=== PATIENT | male | born 1930 | race Caucasian/White ===

== ENCOUNTER 2017-09-05 23:33 | Emergency (ER) | payer MEDICARE, OTHER ==
[~2017-09-05] VITALS: Ht 175.3 cm; Wt 87.5 kg
--- OUTSIDE RECORDS SUMMARY | 2017-09-05 23:38 | XMS REPORT | Continuity of Care Document ---
Author Author [facility] Organization [facility] Address Unknown Phone Unavailable Allergies Active Description Code Type Severity Reaction Onset Reported/Identified Relationship to Patient Clinical Status Yes No Known Drug Allergies [id number] Drug Allergy Unknown N/A 08/14/2015 Medications There is no data. Problems Date Dx Coded Attending Type Code Diagnosis Diagnosed By 08/07/2015 LISBETH MORELOS MD Ot M54.5 08/07/2015 LISBETH MORELOS MD Ot M47.816 08/14/2015 LISBETH MORELOS MD Ot M54.5 08/14/2015 LISBETH MORELOS MD Ot M54.5 08/14/2015 LISBETH MORELOS MD Ot M47.816 08/17/2015 LISBETH MORELOS MD Ot M54.5 Procedures There is no data. Results There is no data. Encounters ACCT No. Visit Date/Time Discharge Status Pt. Type Provider Facility Loc./Unit Complaint [id number] 08/14/2015 12:58:00 08/14/2015 14:49:00 DIS Outpatient LISBETH MORELOS MD [facility] CARD [id number] 08/07/2015 13:39:00 08/07/2015 14:20:00 DIS Outpatient LISBETH MORELOS MD [facility] CARD [id number] 07/27/2015 11:08:00 07/27/2015 23:59:59 CLS Outpatient LISBETH MORELOS MD [facility] RAD
[2017-09-05] MEDS ORDERED: LISI-552 (23:48)
[2017-09-05] MEDS ORDERED: METO-370 (23:48)
[2017-09-06 00:26] LABS: BILIRUBIN,URINE NEGATIVE (NEGATIVE); KETONES,URINE NEGATIVE (NEGATIVE); LEUKOCYTE ESTERASE ,URINE 1+ (NEGATIVE); NITRITE,URINE NEGATIVE (NEGATIVE); PH,URINE 5 (5-9); PROTEIN,URINE 1+ (NEGATIVE); UROBILINOGEN,URINE NORMAL (NORMAL)
[2017-09-06 00:36] LABS: BASOPHILS % (AUTO) 0 % (0-10); EOSINOPHILS % (AUTO) 0 % (0-10); LYMPHOCYTES # (AUTO) 0.2 X 10^3 (1.0-4.0); LYMPHOCYTES % (AUTO) 2 % (12-44); MEAN CORPUSCULAR HEMOGLOBIN 30 PG (25-34); MEAN CORPUSCULAR HGB CONC 34 G/DL (32-36); MEAN CORPUSCULAR VOLUME 88 FL (80-99); MEAN PLATELET VOLUME 8.9 FL (7.4-10.4); MONOCYTES # (AUTO) 0.3 X 10^3 (0.0-1.0); MONOCYTES % (AUTO) 3 % (0-12); NEUTROPHILS # (AUTO) 10.5 X 10^3 (1.8-7.8); NEUTROPHILS % (AUTO) 94 % (42-75); PLATELET COUNT 241 10^3/uL (130-400); RED BLOOD COUNT 4.53 10^6/uL (4.35-5.85); RED CELL DISTRIBUTION WIDTH 13.4 % (10.0-14.5); WHITE BLOOD COUNT 11.2 10^3/uL (4.3-11.0)
[2017-09-06 00:42] LABS: HYALINE CASTS, URINE RARE /LPF; SQUAMOUS EPITHELIAL CELL,UR RARE /HPF; WBC,URINE 0-2 /HPF
[2017-09-06 00:55] LABS: BAND NEUTROPHILS 7 %; BASOPHILS % (MANUAL) 0 %; EOSINOPHILS % (MANUAL) 0 %; LYMPHOCYTES % (MANUAL) 1 %; NEUTROPHILS % (MANUAL) 90 %; REACTIVE LYMPHOCYTES 1 %
[2017-09-06 01:06] LABS: ALANINE AMINOTRANSFERASE 19 U/L (0-55); ALBUMIN 3.4 GM/DL (3.2-4.5); ANION GAP 13 MMOL/L (5-14); ASPARTATE AMINO TRANSFERASE 27 U/L (5-34); BILIRUBIN,TOTAL 1.3 MG/DL (0.1-1.0); BLOOD UREA NITROGEN 11 MG/DL (7-18); BUN/CREATININE RATIO 11; CALCIUM 9.1 MG/DL (8.5-10.1); CARBON DIOXIDE 19 MMOL/L (21-32); CHLORIDE 106 MMOL/L (98-107); CREATININE SERUM 0.98 MG/DL (0.60-1.30); GFR ESTIMATED > 60; GLUCOSE 95 MG/DL (70-105); POTASSIUM 3.8 MMOL/L (3.6-5.0); SODIUM 138 MMOL/L (135-145); TOTAL PROTEIN 7.1 GM/DL (6.4-8.2); hs C REACTIVE PROTEIN 0.44 MG/DL (0.00-0.50)
[2017-09-06] MEDS ORDERED: cefTRIAXone INJECTION 1,000 MG in NS (IVPB) 50 ML IV ONE (02:00)
[2017-09-06] MEDS ORDERED: LEVO750T9 PO (02:17)
--- NOTE | 2017-09-06 02:17 | ED General ---
General Chief Complaint: Fever-Adult/Adol Stated Complaint: FEVER 102.5 Nursing Triage Note: FEVER Nursing Sepsis Screen: No Definite Risk Source of Information: Patient, Family, Old Records Exam Limitations: No Limitations History of Present Illness Time Seen by Provider: 02:20 Initial Comments Patient presents to emergency room with onset of fever and chills tonight. He has mild headache and urinary frequency but has no other complaints. He was recently treated at [facility] for sepsis of unknown source. He had a blood culture returned positive for staph aureus with broad sensitivity. He was dismissed the first week of August. He finished a seven-day course of Cipro and Flagyl as an outpatient under the direction of Dr. Bryant. No definite source of infection was ever identified for his bacteremia that prostatitis or diverticulitis was considered as a possibility. Daughter noted a temperature 102.5 after he started chilling. He received 2 Tylenol at home. He has recent diagnosis of A. fib and is on Eliquis. 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" Home Medications Levofloxacin 750 Mg Tablet, 750 MG PO DAILY, #5 Prescribed by: FISH SWIFT on 09/06/17 0217 Lisinopril 20 Mg Tablet, (Reported) Metoprolol Succinate 50 Mg Tab.er.24h, (Reported) Constitutional: see HPI EENTM: no symptoms reported Respiratory: no symptoms reported Cardiovascular: no symptoms reported Gastrointestinal: no symptoms reported Genitourinary: see HPI Musculoskeletal: no symptoms reported Skin: no symptoms reported Psychiatric/Neurological: See HPI Hematologic/Lymphatic: No Symptoms Reported Past Eskgwev-Clokmb-Nekgqa Hx Patient Social History Alcohol Use: Denies Use Recreational Drug Use: No Smoking Status: Former Smoker 2nd Hand Smoke Exposure: No Recent Foreign Travel: No Contact w/Someone Who Travel: No Recent Infectious Disease Expo: No Recent Hopitalizations: No Immunizations Up To Date Tetanus Booster (TDap): Unknown Seasonal Allergies Seasonal Allergies: No Surgeries History of Surgeries: Yes (LYMPHNODE) Surgeries: Eye Surgery, Pacemaker Respiratory History of Respiratory Disorde: No Cardiovascular History of Cardiac Disorders: Yes Cardiac Disorders: Atrial Fibrillation, Hypertension Neurological History of Neurological Disord: No Genitourinary History of Genitourinary Disor: Yes Genitourinary Disorders: Prostate Problems Gastrointestinal History of Gastrointestinal Di: Yes Gastrointestinal Disorders: Diverticulosis Musculoskeletal History of Musculoskeletal Dis: Yes Musculoskeletal Disorders: Arthritis Endocrine History of Endocrine Disorders: No HEENT History of HEENT Disorders: Yes HEENT Disorders: Cataract Cancer History of Cancer: No Psychosocial History of Psychiatric Problem: No Integumentary History of Skin or Integumenta: No Blood Transfusions History of Blood Disorders: No Physical Exam Vital Signs Vital Sign - Last 12Hours 09/05/17 23:48 Temp 101.4 Pulse 90 Resp 18 B/P (MAP) 149/89 (109) Pulse Ox 94 O2 Delivery Room Air Capillary Refill : Less Than 3 Seconds General Appearance: No Apparent Distress, WD/WN HEENT: PERRL/EOMI, TMs Normal, Normal ENT Inspection, Pharynx Normal Neck: Normal Inspection Respiratory: Lungs Clear, Normal Breath Sounds, No Accessory Muscle Use, No Respiratory Distress Cardiovascular: Regular Rate, Rhythm, No Edema, No Murmur Gastrointestinal: Normal Bowel Sounds, Soft, Tenderness (minimal suprapubic tenderness) Extremity: Normal Inspection, No Pedal Edema Neurologic/Psychiatric: Alert, Oriented x3, No Motor/Sensory Deficits, Normal Mood/Affect, field artillery targeting technician II-XII Norm as Tested Skin: Normal Color, Warm/Dry Progress/Results/Core Measures Suspected Sepsis Recent Fever Within 48 Hours: Yes Infection Criteria Present: Documented Infection New/Unexplained Altered Menta: No Sepsis Screen: No Definite Risk Sepsis Diagnosis: SIRS Temperature:101.4 Pulse: 90 Respiratory Rate: 18 Laboratory Tests 09/06/17 00:20: White Blood Count 11.2H Blood Pressure 149 /89 Mean: 109 Laboratory Tests 09/06/17 00:20: Creatinine 0.98, Platelet Count 241, Total Bilirubin 1.3H Results/Orders Lab Results Laboratory Tests Test 09/06/17 00:08 09/06/17 00:20 Range/Units Urine Color YELLOW Urine Clarity CLEAR Urine pH 5 5-9 Urine Specific Oden 1.015 L 1.016-1.022 Urine Protein 1+ H NEGATIVE Urine Glucose (UA) NEGATIVE NEGATIVE Urine Ketones NEGATIVE NEGATIVE Urine Nitrite NEGATIVE NEGATIVE Urine Bilirubin NEGATIVE NEGATIVE Urine Urobilinogen NORMAL NORMAL MG/DL Urine Leukocyte Esterase 1+ H NEGATIVE Urine RBC (Auto) 1+ H NEGATIVE Urine RBC RARE /HPF Urine WBC 0-2 /HPF Urine Squamous Epithelial Cells RARE /HPF Urine Crystals NONE /LPF Urine Bacteria TRACE /HPF Urine Casts PRESENT /LPF Urine Hyaline Casts RARE /LPF Urine Mucus SMALL H /LPF Urine Culture Indicated NO White Blood Count 11.2 H 4.3-11.0 10^3/uL Red Blood Count 4.53 4.35-5.85 10^6/uL Hemoglobin 13.5 13.3-17.7 G/DL Hematocrit 40 40-54 % Mean Corpuscular Volume 88 80-99 FL Mean Corpuscular Hemoglobin 30 25-34 PG Mean Corpuscular Hemoglobin Concent 34 32-36 G/DL Red Cell Distribution Width 13.4 10.0-14.5 % Platelet Count 241 130-400 10^3/uL Mean Platelet Volume 8.9 7.4-10.4 FL Neutrophils (%) (Auto) 94 H 42-75 % Lymphocytes (%) (Auto) 2 L 12-44 % Monocytes (%) (Auto) 3 0-12 % Eosinophils (%) (Auto) 0 0-10 % Basophils (%) (Auto) 0 0-10 % Neutrophils # (Auto) 10.5 H 1.8-7.8 X 10^3 Lymphocytes # (Auto) 0.2 L 1.0-4.0 X 10^3 Monocytes # (Auto) 0.3 0.0-1.0 X 10^3 Eosinophils # (Auto) 0.0 0.0-0.3 10^3/uL Basophils # (Auto) 0.0 0.0-0.1 10^3/uL Neutrophils % (Manual) 90 % Lymphocytes % (Manual) 1 % Monocytes % (Manual) 1 % Eosinophils % (Manual) 0 % Basophils % (Manual) 0 % Band Neutrophils 7 % Reactive Lymphocytes 1 % Blood Morphology Comment NORMAL Sodium Level 138 135-145 MMOL/L Potassium Level 3.8 3.6-5.0 MMOL/L Chloride Level 106 98-107 MMOL/L Carbon Dioxide Level 19 L 21-32 MMOL/L Anion Gap 13 5-14 MMOL/L Blood Urea Nitrogen 11 7-18 MG/DL Creatinine 0.98 0.60-1.30 MG/DL Estimat Glomerular Filtration Rate > 60 BUN/Creatinine Ratio 11 Glucose Level 95 70-105 MG/DL Calcium Level 9.1 8.5-10.1 MG/DL Total Bilirubin 1.3 H 0.1-1.0 MG/DL Aspartate Amino Transf (AST/SGOT) 27 5-34 U/L Alanine Aminotransferase (ALT/SGPT) 19 0-55 U/L Alkaline Phosphatase 40 40-136 U/L C-Reactive Protein High Sensitivity 0.44 0.00-0.50 MG/DL Total Protein 7.1 6.4-8.2 GM/DL Albumin 3.4 3.2-4.5 GM/DL Micro Results Microbiology 09/06/17 Influenza Types A,B Antigen (LEANN) - Final, Complete My Orders Orders - FISH FOLEY MD Cbc With Automated Diff (09/06/17 00:12) Comprehensive Metabolic Panel (09/06/17 00:12) Hs C Reactive Protein (09/06/17 00:12) Blood Culture (09/06/17 00:12) Influenza A And B Antigens (09/06/17 00:12) Saline Lock/Iv-Start (09/06/17 00:12) Ua Culture If Indicated (09/06/17 00:12) Chest Pa/Lat (2 View) (09/06/17 00:12) Manual Differential (09/06/17 00:20) Ceftriaxone Injection (Rocephin Injectio (09/06/17 02:00) Medications Given in ED Current Medications Medications Dose Ordered Sig/Nelson Route Start Time Stop Time Status Last Admin Dose Admin Ceftriaxone Sodium 1000 mg/ Sodium Chloride 50 ml @ 100 mls/hr ONCE ONCE IV 09/06/17 02:00 09/06/17 02:20 DC 09/06/17 01:58 100 MLS/HR Vital Signs/I&O Vital Sign - Last 12Hours 09/05/17 09/06/17 23:48 02:22 Temp 101.4 100.5 Pulse 90 85 Resp 18 16 B/P (MAP) 149/89 (109) Pulse Ox 94 95 O2 Delivery Room Air Room Air Capillary Refill : Less Than 3 Seconds Blood Pressure Mean: 109 Progress Note : Progress Note It was felt unlikely that patient's fever was due to sepsis. He had no significant elevation in WBC and CRP was normal. Because of the recent bacteremia noted at [facility], he was empirically treated with IV Rocephin after blood cultures were drawn. I discussed disposition with patient and his daughter. Because of no bed availability at [facility], transfer to [place] versus one time dose of IV antibiotics in the ER followed by observation at home was offered. Family and patient elect to return home. Levaquin was ordered for further treatment after dismissal. Levaquin should cover staph species isolated by blood culture, intra-abdominal source of infection or pneumonia. Culture from [facility] was reviewed. The bacterial strain was sensitive to both Levaquin and Rocephin. X-ray was viewed by me and report was not yet available. Densities on the chest x-ray were felt to be likely due to chronic processes. However, pneumonia cannot be completely ruled out. A copy of the images on CD were given to the patient to be compared with images from [place]. Patient's fever resolved with Tylenol and he was dismissed in good condition. Diagnostic Imaging Diagonstic Imaging: Xray Plain Films/CT/US/NM/MRI: chest Comments Chest x-ray viewed by me. Report not yet available. Densities in the bilateral lower lungs are felt to likely be chronic processes. Infiltrate cannot be completely ruled out. There is no prior x-ray for comparison. Departure Impression Impression: Primary Impression: Fever Qualified Codes: R50.9 - Fever, unspecified Disposition: HOME, SELF-CARE Condition: Stable Departure-Patient Inst. Decision time for Depature: 01:45 Referrals: ROMI BRYANT MD (PCP) Primary Care Physician Patient Instructions: Fever, Adult (DC) Add. Discharge Instructions: Drink plenty of clear liquids and complete your antibiotic as prescribed. You may continue taking Tylenol (acetaminophen) up to 1000 mg every 6 hours as needed for fever. Follow-up on your blood culture with Dr. Bryant on Friday. Return to the emergency room if symptoms worsen, if fever is not responsive to Tylenol, or if you develop new symptoms such as pain, shortness of breath, vomiting, etc. There were some markings on your chest x-ray suspicious for chronic scarring but pneumonia could not be completely ruled out. A CD of the images is being provided for comparison to prior images done at [place]. All discharge instructions reviewed with patient and/or family. Voiced understanding. Scripts Levofloxacin (Levaquin) 750 Mg Tablet 750 MG PO DAILY, #5 TAB Prov: FISH FOLEY MD 09/06/17 Copy Copies To 1: ROMI BRYANT MD, JOSHUA T MD Sep 06, 2017 02:17
[2017-09-06 02:22] VITALS: BP 165/88
--- NOTE | 2017-09-06 06:56 | Diagnostic Imaging Report ---
Clinical indication: Patient complains of fever and weakness. Exam: Chest x-ray PA and lateral views. Comparisons: None. Findings: Lungs/pleura: There are patchy areas of airspace opacities overlying the right mid and right lower lung field region and also suspected in the left inferior perihilar region. Otherwise, lungs are clear. There is no pneumothorax. There is no pleural effusion. Mediastinum: Unremarkable. Pulmonary vasculature: Unremarkable. Heart: Heart size within normal limits. There is a cardiac pacemaker overlying the right chest with two leads projecting over the heart. Bones/extrathoracic soft tissue: There are hypertrophic spurs involving the thoracic spine. Impression: There are patchy areas of airspace opacification involving the right midlung field, right lung base, and inferior left perihilar region which may represent infectious or inflammatory process. Comparison to prior chest x-rays would help better evaluate. Follow up chest x-ray in 2 - 4 weeks is suggested to evaluate for interval resolution of this finding. Dictated by: Dictated on workstation # [id number]
== END 2017-09-06 02:20 | disposition home or self-care (01) ==
LOC: EDUNIT# 23:33 → ER 23:34
DX: R50.9 Fever, unspecified (principal); I48.91 Unspecified atrial fibrillation; I10 Essential (primary) hypertension; Z79.01 Long term (current) use of anticoagulants; Z87.891 Personal history of nicotine dependence; Z95.0 Presence of cardiac pacemaker
CPT/HCPCS: 36415; 71020; 80053; 81000; 85007; 85027; 86141; 87040; 87077; 87804

== ENCOUNTER 2017-11-09 22:54 | Emergency (ER) | payer MEDICARE, OTHER ==
[~2017-11-09] VITALS: Ht 172.7 cm; Wt 89.8 kg
[~2017-11-09 22:54] MED LIST: LEVO750T9 PO; LISI-552; METO-370
--- OUTSIDE RECORDS SUMMARY | 2017-11-09 23:00 | XMS REPORT | Continuity of Care Document ---
Author Author [facility] Organization [facility] Address Unknown Phone Unavailable Allergies Active Description Code Type Severity Reaction Onset Reported/Identified Relationship to Patient Clinical Status Yes No Known Drug Allergies [id number] Drug Allergy Unknown N/A 08/14/2015 Yes sulfamethoxazole [id number] Drug Allergy Unknown RASH 09/05/2017 Yes trimethoprim [id number] Drug Allergy Unknown RASH 09/05/2017 Yes vancomycin [id number] Drug Allergy Unknown N/A 09/05/2017 Medications There is no data. 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 Results Test Result Range Complete urinalysis with reflex to culture - 09/06/17 00:08 Urine color determination YELLOW NRG Urine clarity determination CLEAR NRG Urine pH measurement by test strip 5 5-9 Specific gravity of urine by test strip 1.015 1.016- 1.022 Urine protein assay by test strip, semi-quantitative 1+ NEGATIVE Urine glucose detection by automated test strip NEGATIVE NEGATIVE Erythrocytes detection in urine sediment by light microscopy 1+ NEGATIVE Urine ketones detection by automated test strip NEGATIVE NEGATIVE Urine nitrite detection by test strip NEGATIVE NEGATIVE Urine total bilirubin detection by test strip NEGATIVE NEGATIVE Urine urobilinogen measurement by automated test strip (mass/volume) NORMAL NORMAL Urine leukocyte esterase detection by dipstick 1+ NEGATIVE Automated urine sediment erythrocyte count by microscopy (number/high power field) RARE NRG Automated urine sediment leukocyte count by microscopy (number/high power field ) [HPF] NRG Bacteria detection in urine sediment by light microscopy TRACE NRG Squamous epithelial cells detection in urine sediment by light microscopy RARE NRG Crystals detection in urine sediment by light microscopy NONE NRG Casts detection in urine sediment by light microscopy PRESENT NRG Mucus detection in urine sediment by light microscopy SMALL NRG Complete urinalysis with reflex to culture NO NRG Hyaline casts detection in urine sediment by light microscopy RARE NRG Influenza virus A and B antigen detection - 09/06/17 00:17 FLU RESULT NEGATIVE FOR INFLUENZA A AND B ANTIGENS BY IA NRG Complete blood count (CBC) with automated white blood cell (WBC) differential - 09/06/17 00:20 Blood leukocytes automated count (number/volume) 11.2 10*3/uL 4.3-11.0 Blood erythrocytes automated count (number/volume) 4.53 10*6/uL 4.35-5.85 Venous blood hemoglobin measurement (mass/volume) 13.5 g/dL 13.3-17.7 Blood hematocrit (volume fraction) 40 % 40-54 Automated erythrocyte mean corpuscular volume 88 [foz_us] 80-99 Automated erythrocyte mean corpuscular hemoglobin (mass per erythrocyte) 30 pg 25-34 Automated erythrocyte mean corpuscular hemoglobin concentration measurement ( mass/volume) 34 g/dL 32-36 Automated erythrocyte distribution width ratio 13.4 % 10.0-14.5 Automated blood platelet count (count/volume) 241 10*3/uL 130-400 Automated blood platelet mean volume measurement 8.9 [foz_us] 7.4-10.4 Automated blood neutrophils/100 leukocytes 94 % 42-75 Automated blood lymphocytes/100 leukocytes 2 % 12-44 Blood monocytes/100 leukocytes 3 % 0-12 Automated blood eosinophils/100 leukocytes 0 % 0-10 Automated blood basophils/100 leukocytes 0 % 0-10 Blood neutrophils automated count (number/volume) 10.5 10*3 1.8-7.8 Blood lymphocytes automated count (number/volume) 0.2 10*3 1.0-4.0 Blood monocytes automated count (number/volume) 0.3 10*3 0.0-1.0 Automated eosinophil count 0.0 10*3/uL 0.0-0.3 Automated blood basophil count (count/volume) 0.0 10*3/uL 0.0-0.1 Blood manual differential performed detection - 09/06/17 00:20 Blood monocytes/100 leukocytes 1 % NRG Manual blood segmented neutrophils/100 leukocytes 90 % NRG Blood band neutrophils/100 leukocytes 7 % NRG Manual blood lymphocytes/100 leukocytes 1 % NRG Manual eosinophils/100 leukocytes in nose 0 % NRG Manual blood basophils/100 leukocytes 0 % NRG Blood lymphocytes variant/100 leukocytes 1 % NRG Blood erythrocyte morphology finding identification NORMAL [facility] Comprehensive metabolic panel - 09/06/17 00:20 Serum or plasma sodium measurement (moles/volume) 138 mmol/L 135-145 Serum or plasma potassium measurement (moles/volume) 3.8 mmol/L 3.6-5.0 Serum or plasma chloride measurement (moles/volume) 106 mmol/L 98-107 Carbon dioxide 19 mmol/L 21-32 Serum or plasma anion gap determination (moles/volume) 13 mmol/L 5-14 Serum or plasma urea nitrogen measurement (mass/volume) 11 mg/dL 7-18 Serum or plasma creatinine measurement (mass/volume) 0.98 mg/dL 0.60-1.30 Serum or plasma urea nitrogen/creatinine mass ratio 11 NRG Serum or plasma creatinine measurement with calculation of estimated glomerular filtration rate > NRG Serum or plasma glucose measurement (mass/volume) 95 mg/dL 70-105 Serum or plasma calcium measurement (mass/volume) 9.1 mg/dL 8.5-10.1 Serum or plasma total bilirubin measurement (mass/volume) 1.3 mg/dL 0.1-1.0 Serum or plasma alkaline phosphatase measurement (enzymatic activity/volume) 40 U/L 40-136 Serum or plasma aspartate aminotransferase measurement (enzymatic activity/ volume) 27 U/L 5-34 Serum or plasma alanine aminotransferase measurement (enzymatic activity/volume ) 19 U/L 0-55 Serum or plasma protein measurement (mass/volume) 7.1 g/dL 6.4-8.2 Serum or plasma albumin measurement (mass/volume) 3.4 g/dL 3.2-4.5 Serum or plasma C reactive protein measurement (mass/volume) - 09/06/17 00:20 Serum or plasma C reactive protein measurement (mass/volume) 0.44 mg /dL 0.00-0.50 Bacterial blood culture - 09/06/17 00:20 FREE TEXT EXTERNAL REFER TO BLOOD CULTURE [id number] FOR SENS. NRG QUANTITY OF GROWTH Isolated NRG Bacterial blood culture [id number] NRG CALL POSITIVES (F1 HELP) CALLED TO DR. WLID 09/07/17 10:20 BY [facility] Bacterial blood culture - 09/06/17 00:36 FREE TEXT EXTERNAL SENSITIVITY REPORTED 09/11/17 8:15 NRG QUANTITY OF GROWTH . NRG Bacterial blood culture SEE COMMEN NRG FREE TEXT ENTRY 2 NOT MRSA NRG CALL POSITIVES (F1 HELP) CALLED TO DR. WILD, RN 09/07/17 10:15 BY [facility] Bacterial susceptibility panel - 09/06/17 00:36 Oxacillin susceptibility test by minimum inhibitory concentration 0.5 NRG Gentamicin susceptibility test by minimum inhibitory concentration < = NRG Clindamycin susceptibility test by minimum inhibitory concentration <= NRG Erythromycin susceptibility test by minimum inhibitory concentration <= NRG Trimethoprim/sulfamethoxazole susceptibility test by minimum inhibitoryconcentration S NRG Vancomycin susceptibility test by minimum inhibitory concentration S NRG Levofloxacin susceptibility test by minimum inhibitory concentration 0.25 NRG Rifampin susceptibility test by minimum inhibitory concentration <= NRG Tetracycline susceptibility test by minimum inhibitory concentration <= NRG Encounters ACCT No. Visit Date/Time Discharge Status Pt. Type Provider Facility Loc./Unit Complaint [id number] 09/05/2017 23:34:00 09/06/2017 02:20:00 DIS Emergency ALAINA WICK, FISH Rasheed [facility] FEVER 102.5 [id number] 08/14/2015 12:58:00 08/14/2015 14:49:00 DIS Outpatient LISBETH MORELOS MD [facility] CARD SPONDYLOSIS [id number] 08/07/2015 13:39:00 08/07/2015 14:20:00 DIS Outpatient LISBETH MORELOS MD [facility] CARD SPONDYLOSIS [id number] 07/27/2015 11:08:00 07/27/2015 23:59:59 CLS Outpatient LISBETH MORELOS MD [facility] RAD LBP
[2017-11-09 23:40] LABS: BASOPHILS % (AUTO) 1 % (0-10); EOSINOPHILS # (AUTO) 0.1 10^3/uL (0.0-0.3); EOSINOPHILS % (AUTO) 2 % (0-10); HEMATOCRIT 42 % (40-54); HEMOGLOBIN 14.6 G/DL (13.3-17.7); LYMPHOCYTES # (AUTO) 1.4 X 10^3 (1.0-4.0); LYMPHOCYTES % (AUTO) 18 % (12-44); MEAN CORPUSCULAR HEMOGLOBIN 31 PG (25-34); MEAN CORPUSCULAR HGB CONC 35 G/DL (32-36); MEAN CORPUSCULAR VOLUME 88 FL (80-99); MEAN PLATELET VOLUME 9.4 FL (7.4-10.4); MONOCYTES # (AUTO) 0.8 X 10^3 (0.0-1.0); MONOCYTES % (AUTO) 11 % (0-12); NEUTROPHILS # (AUTO) 5.1 X 10^3 (1.8-7.8); NEUTROPHILS % (AUTO) 69 % (42-75); PLATELET COUNT 174 10^3/uL (130-400); RED BLOOD COUNT 4.75 10^6/uL (4.35-5.85); RED CELL DISTRIBUTION WIDTH 14.5 % (10.0-14.5); WHITE BLOOD COUNT 7.4 10^3/uL (4.3-11.0)
[2017-11-09 23:47] LABS: INR 1.3 (0.8-1.4); PROTHROMBIN TIME PATIENT 15.9 SEC (12.2-14.7)
--- NOTE | 2017-11-10 00:11 | ED EENT ---
History of Present Illness General Chief Complaint: Oral/Throat Problems Stated Complaint: ORAL BLEEDING Nursing Triage Note: PT PRESENTS TO ER WITH COMPLAINT OF ORAL BLEEDING. STATES HE HAD TEETH PULLED ON Oct AND . GRANDDAUGHGTER STATES HE HAS HAD BLEEDING SINCE, BUT TODAY HAS BEEN UNCONTROLLED SINCE 1129. STATES THEY HAVE TRIED TEA BAGS AND FROZEN GAUZE. PT STATES HE TAKES ELIQUIS. Source: patient, family History of Present Illness Date Seen by Provider: Nov 09, 2017 Time Seen by Provider: 23:15 Initial Comments PT HAD 8 TEETH PULLED ON 10/29 AND 11 TEETH PULLED ON 11/03--DR. SANA GAUTHIER IN [place] HAS HAD INTERMITTENT BLEEDING FROM SITES SINCE THEN, BUT BLEEDING HAS BEEN WORSE /MORE FREQUENT SINCE THIS MORNING. STARTED RE-BLEEDING AROUND [facility] AND HAS PERSISTED--BLEEDING HAS BEEN MOSTLY FROM LEFT LOWER AND LEFT UPPER MOLAR SITES HAS BEEN USING "SOCK IT" ORAL HYDROGEL WOUND DRESSING, WELL TEA BAGS AND FROZEN GAUZE--ALL WITHOUT IMPROVEMENT PT IS ON ELIQUIS AND ASPIRIN FOR CHRONIC ATRIAL FIBRILLATION. HAS NOT ATTEMPTED TO FOLLOW UP WITH ANYONE, INCLUDING DENTIST/ORAL SURGEON, UNTIL TONIGHT--HAS APPOINTMENT WITH DENTIST 12/01/17 NO PAIN OR SWELLING TO GUMS OR FACE. NO FEVER NO EXCESSIVE BLEEDING OR BRUISING FROM OTHER AREAS OF BODY PCP: DR. 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" Home Medications Levofloxacin 750 Mg Tablet, 750 MG PO DAILY Prescribed by: FISH SWIFT on 09/06/17 0217 Review of Systems Constitutional: no symptoms reported, No dizziness, No fever Eyes: No Symptoms Reported Ears: No Symptoms Reported Nose: no symptoms reported Mouth: see HPI Throat: no symptoms reported Respiratory: no symptoms reported Cardiovascular: no symptoms reported Gastrointestinal: no symptoms reported Musculoskeletal: no symptoms reported Skin: no symptoms reported Neurological: No Symptoms Reported Hematologic/Lymphatic: See HPI Past Qfoprfs-[id number]-Dvuunz Hx Patient Social History Alcohol Use: Denies Use Recreational Drug Use: No Smoking Status: Former Smoker 2nd Hand Smoke Exposure: No Recent Foreign Travel: No Contact w/Someone Who Travel: No Recent Infectious Disease Expo: No Recent Hopitalizations: No Immunizations Up To Date Tetanus Booster (TDap): Unknown Seasonal Allergies Seasonal Allergies: No Surgeries History of Surgeries: Yes (LYMPH NODE, ORAL/TEETH EXTRACTED) Surgeries: Eye Surgery, Pacemaker Respiratory History of Respiratory Disorde: No Cardiovascular History of Cardiac Disorders: Yes Cardiac Disorders: Atrial Fibrillation, Hypertension Neurological History of Neurological Disord: No Genitourinary History of Genitourinary Disor: Yes Genitourinary Disorders: Prostate Problems Gastrointestinal History of Gastrointestinal Di: Yes Gastrointestinal Disorders: Diverticulosis Musculoskeletal History of Musculoskeletal Dis: Yes Musculoskeletal Disorders: Arthritis Endocrine History of Endocrine Disorders: No HEENT History of HEENT Disorders: Yes (DENTAL PROBLEMS--HAD SEPSIS 08/2017 AND WAS FELT TO BE FROM TEETH, SO ALL TEETH PULLED) HEENT Disorders: Cataract Cancer History of Cancer: No Psychosocial History of Psychiatric Problem: No Integumentary History of Skin or Integumenta: No Blood Transfusions History of Blood Disorders: No (ON ELIQUIS + ASPIRIN FOR CHRONIC ATRIAL FIBRILLATION) Physical Exam Vital Signs Vital Signs - First Documented 11/09/17 23:05 Temp 98.0 Pulse 92 Resp 15 B/P (MAP) 173/113 (133) Pulse Ox 96 O2 Delivery Room Air General Appearance: WD/WN, no apparent distress Nose: normal inspection Mouth/Throat: other (LEFT UPPER AND LOWER MOST POSTERIOR EXTRACTION SITES WITH CONSTANT OOZING OF BLOOD. NO ADJACENT GUM SWELLING OR SIGNS OF INFECTION. OTHER EXTRACTION SITES APPEAR TO BE HEALING NORMALLY. 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 Progress/Results/Core Measures Results/Orders Lab Results Laboratory Tests Test 11/09/17 23:30 Range/Units White Blood Count 7.4 4.3-11.0 10^3/uL Red Blood Count 4.75 4.35-5.85 10^6/uL Hemoglobin 14.6 13.3-17.7 G/DL Hematocrit 42 40-54 % Mean Corpuscular Volume 88 80-99 FL Mean Corpuscular Hemoglobin 31 25-34 PG Mean Corpuscular Hemoglobin Concent 35 32-36 G/DL Red Cell Distribution Width 14.5 10.0-14.5 % Platelet Count 174 130-400 10^3/uL Mean Platelet Volume 9.4 7.4-10.4 FL Neutrophils (%) (Auto) 69 42-75 % Lymphocytes (%) (Auto) 18 12-44 % Monocytes (%) (Auto) 11 0-12 % Eosinophils (%) (Auto) 2 0-10 % Basophils (%) (Auto) 1 0-10 % Neutrophils # (Auto) 5.1 1.8-7.8 X 10^3 Lymphocytes # (Auto) 1.4 1.0-4.0 X 10^3 Monocytes # (Auto) 0.8 0.0-1.0 X 10^3 Eosinophils # (Auto) 0.1 0.0-0.3 10^3/uL Basophils # (Auto) 0.0 0.0-0.1 10^3/uL Prothrombin Time 15.9 H 12.2-14.7 SEC INR Comment 1.3 0.8-1.4 Activated Partial Thromboplast Time 33 24-35 SEC My Orders Orders - VONDA RIOS DO Cbc With Automated Diff (11/09/17 23:23) Protime With Inr (11/09/17 23:23) Partial Thromboplastin Time (11/09/17 23:23) Vital Signs/I&O Vital Sign - Last 12Hours 11/09/17 23:05 Temp 98.0 Pulse 92 Resp 15 B/P (MAP) 173/113 (133) Pulse Ox 96 O2 Delivery Room Air Blood Pressure Mean: 133 Progress Note : Progress Note BLEEDING STOPPED WITH SURGICEL + GELFOAM Departure Impression Impression: Primary Impression: EXCESSIVE BLEEDING FROM DENTAL EXTRACTION SITES Additional Impression: ANTICOAGULATION THERAPY Disposition: 01 HOME, SELF-CARE Condition: Improved Departure-Patient Inst. Referrals: ROMI HA MD (PCP) Primary Care Physician Patient Instructions: Bleeding Gums (DC) Add. Discharge Instructions: LEAVE PACKING IN PLACE UNTIL MORNING IF AREA RE-BLEEDS, APPLY MORE GAUZE AND BITE DOWN WITH CONSTANT PRESSURE ON GAUZE, AND APPLY ICE PACK TO CHEEK HOLD TONIGHT'S ELIQUIS DOSE IF AREA RE-BLEEDS AND DOES NOT STOP AFTER AN HOUR, RETURN TO ER FOLLOW UP WITH YOUR DENTIST TOMORROW FOR FURTHER CARE All discharge instructions reviewed with patient and/or family. Voiced understanding. VONDA RIOS DO Nov 10, 2017 00:11
[2017-11-10 00:31] VITALS: BP 173/113
== END 2017-11-10 00:31 | disposition home or self-care (01) ==
LOC: EDUNIT# 22:54 → ER 22:56
DX: K91.840 Postprocedural hemorrhage of a digestive system organ or structure following a digestive system procedure (principal); I48.91 Unspecified atrial fibrillation; I10 Essential (primary) hypertension; Z79.01 Long term (current) use of anticoagulants; Z79.82 Long term (current) use of aspirin; Z87.19 Personal history of other diseases of the digestive system; Z88.1 Allergy status to other antibiotic agents; Z88.8 Allergy status to other drugs, medicaments and biological substances; Z95.0 Presence of cardiac pacemaker; Z98.890 Other specified postprocedural states
CPT/HCPCS: 36415; 85025; 85610; 85730; 99282

== ENCOUNTER → 2018-03-20 | Outpatient (CLI) | payer MEDICARE, OTHER | LOC: CARD 08:21 | PROVIDERS: ATTEND Nurse Practitioner Family | DX: I48.91 Unspecified atrial fibrillation (principal); I10 Essential (primary) hypertension; I44.2 Atrioventricular block, complete; I49.5 Sick sinus syndrome; I07.1 Rheumatic tricuspid insufficiency | CPT/HCPCS: 93306 ==

== ENCOUNTER 2019-04-23 10:49 | Outpatient (CLI) | payer MEDICARE, OTHER ==
[~2019-04-23] VITALS: Ht 172.7 cm; Wt 89.8 kg
[2019-04-23 11:00] VITALS: BP 142/64
== END 2019-04-23 12:15 | disposition home or self-care (01) ==
LOC: SDC 10:49
PROVIDERS: ATTEND Nurse Practitioner Family
DX: N39.0 Urinary tract infection, site not specified (principal)
CPT/HCPCS: 99213; 99214

== ENCOUNTER 2019-04-26 11:09 | Outpatient (CLI) | payer MEDICARE, OTHER ==
[~2019-04-26] VITALS: Ht 172.7 cm; Wt 89.8 kg
[2019-04-26 11:15] VITALS: BP 175/93
--- NOTE | 2019-04-26 11:15 | NUR ---
[place] [facility] [place]. SMALL AMOUNT OF BLOODY URINE DRAINAGE TO DEPENDS. PT AND SON REPORT CATHETER WAS PLAC[place] [facility] AND REMOVED AT HOME PER DR'S ORDER AT APPROXIMATELY 0730. HAS BEEN UNABLE TO VOID MORE THAN DRIBBLES SINCE THEN AND HAS HAD INCREASING PAIN AND PRESSURE.
--- NOTE | 2019-04-26 11:40 | NUR ---
16 FR ALCANTAR CATH PLACED WITHOUT DIFFICULTY, STERILE TECHNIQUE, IMMEDIATE RETURN OF BLOOD TINGED URINE, OCCASIONAL SMALL CLOT PASSED THROUGH TUBING. PT REPORTS IMMEDIATE DECREASE IN BLADDER PAIN/PRESSURE. ALCANTAR TUBING SECURED TO RIGHT LEG WITH STATLOCK, BAG TO DEPENDENT DRAINAGE.
--- NOTE | 2019-04-26 12:00 | NUR ---
HAS HAD 1200 CC URINE OUTPUT SINCE CATHETER PLACED. URINE NOW CLEAR, YELLOW, NO CLOTS. ALCANTAR CATH TO LEG BAG FOR DISMISSAL AND 4000 CC COLLECTION BAG SENT WITH PT FOR NIGHT USE. REPORTS RELIEF OF PAIN AND BLADDER PRESSURE.
== END 2019-04-26 12:10 | disposition home or self-care (01) ==
LOC: SDC 11:09
PROVIDERS: ATTEND Nurse Practitioner Family
DX: R33.9 Retention of urine, unspecified (principal)

== ENCOUNTER → 2019-07-21 | Outpatient (CLI) | payer MEDICARE, OTHER ==
[~2019-07-21] VITALS: Ht 172 cm; Wt 98.0 kg
[~2019-07-21] MED LIST changes: +CATHETER FLUSH 10 ML SYR IV PRN; +REGADENOSON 0.4 MG/5 ML SYR (LEXISCAN) IV ONE
--- NOTE | 2019-07-21 15:31 | STRESS TEST ---
DATE OF SERVICE: 07/21/2019 LEXISCAN MYOVIEW STRESS TEST REPORT REFERRING PHYSICIAN: Dr. Juany Bryant. Baseline heart rate is 94. Baseline blood pressure 188/103. Baseline EKG is AV paced rhythm at a rate of 94. In summary, the patient was injected with 10.92 mCi of technetium-99 Myoview and the resting images were obtained. Then, the patient received 0.4 mg of Lexiscan followed by 33.0 mCi of technetium-99 Myoview. Throughout the test, there were no EKG changes. Continued to be under paced rhythm, the resting and stress images were reviewed and compared in the short axis, horizontal long axis, and vertical long axis views. Review of the images showed diaphragmatic attenuation with mild decreased uptake involving the inferoapical segment and inferolateral wall. SSS is 5, mild reversibility was noted, SDS 5, TID value 1.12. On the gated images, the left ventricle appeared to be prominent with diffuse left ventricular hypokinesia, more pronounced at the inferior wall. Calculated ejection fraction is 38%. CONCLUSION: 1. The patient tolerated Lexiscan well. 2. Baseline paced rhythm persisted throughout test. 3. Diaphragmatic attenuation with mild ischemia at the inferoapical and inferolateral wall. 4. Normal left ventricular size with hypokinesia at the inferior wall and inferolateral wall with calculated ejection fraction 38%. Job ID: [id number] DocumentID: [id number] Dictated Date: 07/21/2019 15:09:50 Certified Bench Jeweler Technician Date: 07/21/2019 15:29:33 Dictated By: BELKYS BAER MD
== END ==
LOC: CARD 11:00
PROVIDERS: ATTEND Internal Medicine Cardiovascular Disease
DX: I11.0 Hypertensive heart disease with heart failure (principal); I50.9 Heart failure, unspecified; I48.0 Paroxysmal atrial fibrillation; I25.89 Other forms of chronic ischemic heart disease; Z95.0 Presence of cardiac pacemaker
CPT/HCPCS: 78452; 93017

== ENCOUNTER → 2019-07-29 | Outpatient (CLI) | payer MEDICARE, OTHER ==
[~2019-07-29] MED LIST changes: -CATHETER FLUSH 10 ML SYR IV PRN; -REGADENOSON 0.4 MG/5 ML SYR (LEXISCAN) IV ONE
== END ==
LOC: CARD 12:53
PROVIDERS: ATTEND Internal Medicine Cardiovascular Disease
DX: I34.0 Nonrheumatic mitral (valve) insufficiency (principal); I11.0 Hypertensive heart disease with heart failure; I50.22 Chronic systolic (congestive) heart failure; I48.0 Paroxysmal atrial fibrillation; Z95.0 Presence of cardiac pacemaker
CPT/HCPCS: 93306